=== PATIENT | male | born 1965 | race Caucasian/White ===

== ENCOUNTER 2023-07-27 13:01 | Outpatient (CLI) | payer MEDICARE, SELFPAY ==
--- NOTE | 2023-07-27 13:04 | XR_ITS ---
WS: [id number] DEXA (DUAL ENERGY X-RAY ABSORPTIOMETRY) Bone mineral density was performed using a [employer] machine. HISTORY: Other specified disorders of BD structures COMPARISON: None available. Lumbar spine BMD (L1-L4): 1.025 T score: -1.8 Z score: -1.9 Total hip BMD: Left: 0.722 g/cm2. T score: -2.6 Z score: -2.4 Right: 0.689 g/cm2. T score: -2.9 Z score: -2.7 10 year probability of a major osteoporotic fracture is 31.8%. IMPRESSION: OSTEOPOROSIS.
== END 2023-07-27 13:02 | disposition home or self-care (01) ==
LOC: RAD 13:02
PROVIDERS: PCP Family Medicine; Visit Provider Family Medicine
DX: M85.88 Other specified disorders of bone density and structure, other site (principal)
CPT/HCPCS: 77080

== ENCOUNTER 2023-09-11 09:04 | Oncology outpatient (recurring) (ONCR) | payer MEDICARE, SELFPAY ==
[2023-09-11 09:26] VITALS: BP 137/77; PULSE 54; RESP 18; TEMP 36.4; O2SAT 96
[2023-09-11 09:28] VITALS: BMI 35.0
[2023-09-11] MEDS: denosumab 60 mg SDV SUBCUT (09:43)
== END 2023-09-18 23:59 | disposition home or self-care (01) ==
PROVIDERS: PCP Family Medicine; Visit Provider Family Medicine
DX: M81.0 Age-related osteoporosis without current pathological fracture (principal)
CPT/HCPCS: 96372; J0897

== ENCOUNTER 2024-03-09 13:22 | Oncology outpatient (recurring) (ONCR) | payer MEDICARE, SELFPAY ==
[2024-03-09] MEDS: denosumab 60 mg SDV SUBCUT (13:46)
== END 2024-03-19 23:59 | disposition home or self-care (01) ==
LOC: ONCMED 13:23
PROVIDERS: PCP Family Medicine; Visit Provider Family Medicine
DX: M81.0 Age-related osteoporosis without current pathological fracture (principal); Z79.899 Other long term (current) drug therapy
CPT/HCPCS: 96372; J0897